=== PATIENT | female | born 1935 | race Two or more races ===

== ENCOUNTER 2017-06-11 08:20 | Inpatient (IN) | payer MEDICARE, MEDICAID ==
[2017-06-05 15:52] LABS: BASOPHILS % (AUTO) 0.5 % (0-1); EOSINOPHILS # (AUTO) 0.3 X10'3 (0-0.9); EOSINOPHILS % (AUTO) 4.4 % (0-6); LYMPHOCYTES # (AUTO) 2.8 X10'3 (1.1-4.8); LYMPHOCYTES % (AUTO) 40.5 % (21-51); MEAN CORPUSCULAR HEMOGLOBIN 29.9 PG (27.0-31.0); MEAN CORPUSCULAR HGB CONC 33.4 % (33.0-36.5); MEAN CORPUSCULAR VOLUME 89.5 FL (78-98); MEAN PLATELET VOLUME 8.4 FL (7.4-10.4); MONOCYTES # (AUTO) 0.6 X10'3 (0-0.9); MONOCYTES % (AUTO) 8.8 % (2-12); NEUTROPHILS # (AUTO) 3.1 X10'3 (1.8-7.7); NEUTROPHILS % (AUTO) 45.8 % (42-75); PRE OP HEMATOCRIT 36.9 % (35.0-45.0); PRE OP HEMOGLOBIN 12.3 g/dL (12.0-16.0); PRE OP PLATELET COUNT 199 X10'3 (140-440); RED BLOOD COUNT 4.12 X10'6 (4.20-5.60); RED CELL DISTRIBUTION WIDTH 12.5 % (11.5-14.5)
[2017-06-05 16:02] LABS: PRE OP PROTIME 10.8 SECONDS (9.0-12.0)
[2017-06-05 16:07] LABS: ALBUMIN 3.6 G/DL (3.4-5.0); ALKALINE PHOSPHATASE 87 IU/L (46-116); BLOOD UREA NITROGEN 14 MG/DL (7-18); BUN/CREATININE RATIO 16.5 (6.6-38.0); CALCIUM 8.9 MG/DL (8.5-10.1); CHLORIDE 102 MMOL/L (99-107); CREATININE 0.85 MG/DL (0.40-0.90); PRE OP ALT 38 U/L (30-65); PRE OP ANION GAP 5 (8-16); PRE OP AST 29 U/L (10-37); PRE OP BILIRUB, TOTAL 0.2 MG/DL (0.0-1.0); PRE OP GLUCOSE 146 MG/DL (70-104); PRE OP SODIUM 138 MMOL/L (135-145); TOTAL CARBON DIOXIDE 31.5 MMOL/L (24-32); TOTAL PROTEIN 7.2 G/DL (6.4-8.2); eGFR 64 ML/MIN
[2017-06-11] VITALS (18 sets, daily range): BP systolic 109–167; BP diastolic 47–90
[~2017-06-11] VITALS: Ht 152.4 cm; Wt 81.8 kg
[~2017-06-11 08:20] MED LIST: BUPR150T6 PO; CARB200T PO; ESCI5TAB PO; ESZO3TAB32 PO; LOSA1TAB39 PO; PRAV40TA3 PO; ceFAZolin 2gm in dextrose, iso 100 ML IV ONE; famotidine 20mg tablet PO ONE; losartan 50mg tablet PO ONE; ringers solution, lacted 1,000 ML IV SCH; vancomycin inj 1,500 MG in normal saline 300ml IV soln IV ONE
[2017-06-11] MEDS ORDERED: LIDOcaine 1% (10mg/ml) 2ml vial ONE (09:06)
[2017-06-11] MEDS ORDERED: ketorolac trometh. 30mg/ml inj. ONE (11:33)
[2017-06-11] MEDS ORDERED: ROPIVAcaine 0.5% (5mg/ml) 30ml vial ONE (11:34)
[2017-06-11] MEDS ORDERED: vancomycin 1,000mg inj ONE (11:34)
[2017-06-11] MEDS ORDERED: BUPIVAcaine/dex-water/PF 7.5 mg/ml 2ml ampul ONE (12:22)
[2017-06-11] MEDS ORDERED: cloNIDine hcl/PF 100mcg/ml inj ONE (12:22)
[2017-06-11] MEDS ORDERED: MIDAZolam 1mg/ml 10ml vial ONE (12:32)
[2017-06-11] MEDS ORDERED: MORPHINE SULFATE/PF 0.5 MG/ML 10ML AMPUL ONE (12:32)
[2017-06-11] MEDS ORDERED: propofol inj 20 ML IV ONE ×3 (13:00→14:50)
[2017-06-11] MEDS ORDERED: diphenhydrAMINE 50 mg/ml inj ONE (13:04)
[2017-06-11] MEDS ORDERED: TRANEXAMIC ACID IV ONE ×2 (13:05)
[2017-06-11] MEDS ORDERED: SODIUM CHLORIDE IV ONE ×2 (13:05)
[2017-06-11] MEDS ORDERED: ringers solution, lacted 1,000 ML IV SCH (13:49)
[2017-06-11] MEDS ORDERED: naloxone 2mg/2ml inj 1.6 MG in normal saline 500ml IV soln 500 ML IV PRN (13:49)
[2017-06-11] MEDS ORDERED: proCHLORperazine 10 MG/2 ml inj IV PRN (13:50)
[2017-06-11] MEDS ORDERED: fentaNYL/PF 50MCG/1 ML 2ML syringe IV PRN ×2 (13:50)
[2017-06-11] MEDS ORDERED: diphenhydrAMINE 50 mg/ml inj IV PRN (13:50)
[2017-06-11] MEDS ORDERED: ondansetron/PF 4mg/2ml inj IV PRN ×2 (13:50)
[2017-06-11] MEDS ORDERED: meperidine/PF 25mg/ml syringe IV ONE (13:50)
[2017-06-11] MEDS ORDERED: ceFAZolin 1000mg inj ONE (15:15)
[2017-06-11] MEDS ORDERED: dexamethasone sod phosphate 4mg/ml inj. ONE (15:16)
[2017-06-11] MEDS ORDERED: BUPIVAcaine/PF 2.5 mg/ml (0.25%) 30ml vial ONE (15:16)
[2017-06-11] MEDS ORDERED: magnesium hydroxide 30ml (MOM) UD suspension PO PRN (15:35)
[2017-06-11] MEDS ORDERED: HYDROmorphone 1 mg/ml syringe IV PRN ×2 (15:35)
[2017-06-11] MEDS ORDERED: diphenhydrAMINE 25mg capsule PO PRN (15:35)
[2017-06-11] MEDS ORDERED: bisacodyl 10mg suppository rectal RC PRN (15:35)
[2017-06-11] MEDS ORDERED: acetaminophen 325mg tablet PO PRN (15:35)
[2017-06-11] MEDS: potassium cl 20mEq in 1/2 NS 1,000 ML IV SCH ×2 (17:13→23:35)
[2017-06-11] MEDS: cefazolin 1gm/NS 100mL 100 ML IV SCH (17:14)
[2017-06-11] MEDS: diphenhydrAMINE 25mg capsule PO PRN (17:19)
[2017-06-11] MEDS ORDERED: vancomycin/NS 1 GM ADD-VANTAGE 250 ML IV SCH (20:00)
[2017-06-11] MEDS: carBAMazepine 100mg chewable tablet PO SCH (20:35)
[2017-06-11] MEDS: gabapentin 300mg capsule PO SCH (20:35)
[2017-06-11] MEDS: acetaminophen 325mg tablet PO SCH (20:35)
[2017-06-11] MEDS: zolpidem 5mg tablet PO SCH (20:36)
[2017-06-11] MEDS: buPROPion 75mg tablet PO SCH (20:36)
[2017-06-11] MEDS: sennosides 8.6mg tablet PO SCH (20:36)
[2017-06-11] MEDS: ketorolac tromethamine 15mg/ml inj. IV SCH (20:37)
[2017-06-11] MEDS: ondansetron/PF 4mg/2ml inj IV PRN (20:50)
[2017-06-11] MEDS ORDERED: CARBAMAZEPINE PO SCH (21:00)
[2017-06-11] MEDS ORDERED: ESZOPICLONE PO SCH (21:00)
[2017-06-12] MEDS: cefazolin 1gm/NS 100mL 100 ML IV SCH (00:39)
[2017-06-12] MEDS: potassium cl 20mEq in 1/2 NS 1,000 ML IV SCH ×3 (00:39→23:35)
[2017-06-12] MEDS: oxyCODONE IR 5mg (immed. release) tablet PO PRN ×5 (01:03→23:58)
[2017-06-12 02:00] VITALS: BP 117/56
[2017-06-12] MEDS: ketorolac tromethamine 15mg/ml inj. IV SCH ×4 (02:12→20:41)
[2017-06-12] MEDS: acetaminophen 325mg tablet PO SCH ×4 (02:12→20:42)
[2017-06-12] MEDS: diphenhydrAMINE 25mg capsule PO PRN (05:23)
[2017-06-12 06:27] LABS: BASOPHILS % (AUTO) 0.1 % (0-1); EOSINOPHILS # (AUTO) 0.2 X10'3 (0-0.9); EOSINOPHILS % (AUTO) 1.7 % (0-6); HEMATOCRIT 29.7 % (35.0-45.0); HEMOGLOBIN 10.1 g/dl (12.0-16.0); LYMPHOCYTES # (AUTO) 2.3 X10'3 (1.1-4.8); LYMPHOCYTES % (AUTO) 18.7 % (21-51); MEAN CORPUSCULAR HEMOGLOBIN 30.1 PG (27.0-31.0); MEAN CORPUSCULAR HGB CONC 33.8 % (33.0-36.5); MEAN CORPUSCULAR VOLUME 88.9 FL (78-98); MEAN PLATELET VOLUME 8.1 FL (7.4-10.4); MONOCYTES # (AUTO) 1.2 X10'3 (0-0.9); MONOCYTES % (AUTO) 9.7 % (2-12); NEUTROPHILS # (AUTO) 8.5 X10'3 (1.8-7.7); NEUTROPHILS % (AUTO) 69.8 % (42-75); PLATELET COUNT 166 X10'3 (140-440); RED BLOOD COUNT 3.34 X10'6 (4.20-5.60); RED CELL DISTRIBUTION WIDTH 12.8 % (11.5-14.5); WHITE BLOOD COUNT 12.2 X10'3 (4.5-11.0)
[2017-06-12 06:56] LABS: ANION GAP 4 (8-16); CHLORIDE 100 MMOL/L (99-107); POTASSIUM 5.3 MMOL/L (3.5-5.1); SODIUM 133 MMOL/L (135-145); TOTAL CARBON DIOXIDE 28.7 MMOL/L (24-32)
[2017-06-12] MEDS: ondansetron/PF 4mg/2ml inj IV PRN (07:13)
[2017-06-12 07:24] VITALS: BP 119/65
[2017-06-12] MEDS: buPROPion 75mg tablet PO SCH ×2 (08:00→20:42)
[2017-06-12] MEDS: losartan 50mg tablet PO SCH (08:00)
[2017-06-12] MEDS ORDERED: buproprion 150mg XL (24-hour) tablet PO SCH (08:00)
[2017-06-12] MEDS ORDERED: pravastatin 40mg tablet PO SCH (08:00)
[2017-06-12] MEDS: atorvastatin 10mg tablet PO SCH (08:00)
[2017-06-12] MEDS ORDERED: ESCITALOPRAM OXALATE PO SCH (08:00)
[2017-06-12] MEDS ORDERED: non-formulary drug (Losartan/Hydrochlorothiazide (Losartan-Hctz 100-25 Mg Tab) 1 TAB) PO SCH (08:00)
[2017-06-12] MEDS: HYDROchlorothiazide 25mg tablet PO SCH (08:00)
[2017-06-12] MEDS: citalopram 20mg tablet PO SCH (08:00)
[2017-06-12] MEDS: aspirin 325mg tablet PO SCH (11:09)
[2017-06-12] MEDS: gabapentin 300mg capsule PO SCH ×3 (11:09→20:42)
[2017-06-12 11:50] VITALS: BP 156/69
[2017-06-12 16:33] VITALS: BP 110/51
[2017-06-12 18:00] VITALS: BP 128/55
[2017-06-12] MEDS: zolpidem 5mg tablet PO SCH (20:41)
[2017-06-12] MEDS: sennosides 8.6mg tablet PO SCH (20:42)
[2017-06-12] MEDS: carBAMazepine 100mg chewable tablet PO SCH (20:48)
[2017-06-12 22:00] VITALS: BP 105/64
[2017-06-13] MEDS: acetaminophen 325mg tablet PO SCH ×3 (02:17→14:40)
[2017-06-13] MEDS: ketorolac tromethamine 15mg/ml inj. IV SCH (02:17)
[2017-06-13 05:00] VITALS: BP 111/59
[2017-06-13] MEDS: oxyCODONE IR 5mg (immed. release) tablet PO PRN ×4 (05:09→18:56)
[2017-06-13 06:12] LABS: BASOPHILS % (AUTO) 0.3 % (0-1); EOSINOPHILS # (AUTO) 0.3 X10'3 (0-0.9); HEMOGLOBIN 8.1 g/dl (12.0-16.0); LYMPHOCYTES # (AUTO) 1.9 X10'3 (1.1-4.8); LYMPHOCYTES % (AUTO) 28.6 % (21-51); MEAN CORPUSCULAR HEMOGLOBIN 30.2 PG (27.0-31.0); MEAN CORPUSCULAR HGB CONC 33.9 % (33.0-36.5); MEAN CORPUSCULAR VOLUME 88.9 FL (78-98); MEAN PLATELET VOLUME 8.7 FL (7.4-10.4); MONOCYTES # (AUTO) 0.9 X10'3 (0-0.9); MONOCYTES % (AUTO) 14.1 % (2-12); NEUTROPHILS # (AUTO) 3.4 X10'3 (1.8-7.7); PLATELET COUNT 120 X10'3 (140-440); RED CELL DISTRIBUTION WIDTH 12.3 % (11.5-14.5); WHITE BLOOD COUNT 6.6 X10'3 (4.5-11.0)
[2017-06-13] MEDS: potassium cl 20mEq in 1/2 NS 1,000 ML IV SCH (07:35)
[2017-06-13] MEDS: losartan 50mg tablet PO SCH (08:00)
[2017-06-13] MEDS: HYDROchlorothiazide 25mg tablet PO SCH (08:00)
[2017-06-13 08:40] LABS: ALBUMIN 2.7 G/DL (3.4-5.0); ANION GAP 3 (8-16); BLOOD UREA NITROGEN 13 MG/DL (7-18); BUN/CREATININE RATIO 16.3 (6.6-38.0); CALCIUM 7.9 MG/DL (8.5-10.1); CHLORIDE 103 MMOL/L (99-107); GLUCOSE 119 MG/DL (70-104); POTASSIUM 4.2 MMOL/L (3.5-5.1); SODIUM 134 MMOL/L (135-145); TOTAL CARBON DIOXIDE 28.5 MMOL/L (24-32); eGFR 69 ML/MIN
[2017-06-13] MEDS: citalopram 20mg tablet PO SCH (08:44)
[2017-06-13] MEDS: celeCOXIB 100mg capsule PO SCH ×2 (08:44→20:20)
[2017-06-13] MEDS: atorvastatin 10mg tablet PO SCH (08:44)
[2017-06-13] MEDS: gabapentin 300mg capsule PO SCH ×3 (08:45→20:20)
[2017-06-13] MEDS: buPROPion 75mg tablet PO SCH ×2 (08:46→20:20)
[2017-06-13] MEDS: aspirin 325mg tablet PO SCH (08:46)
[2017-06-13 10:30] VITALS: BP 145/66
[2017-06-13 18:00] VITALS: BP 143/56
[2017-06-13] MEDS: Protein Smoothie (high protein) 240ml (8oz) cup PO SCH (18:00)
[2017-06-13] MEDS: zolpidem 5mg tablet PO SCH (20:20)
[2017-06-13] MEDS: sennosides 8.6mg tablet PO SCH (20:21)
[2017-06-13] MEDS: carBAMazepine 100mg chewable tablet PO SCH (20:21)
[2017-06-13 22:00] VITALS: BP 123/58
[2017-06-14 05:00] VITALS: BP 118/54
[2017-06-14 07:25] VITALS: BP 138/72
[2017-06-14 07:28] LABS: BASOPHILS % (AUTO) 0.3 % (0-1); EOSINOPHILS # (AUTO) 0.2 X10'3 (0-0.9); EOSINOPHILS % (AUTO) 2.6 % (0-6); HEMATOCRIT 24.3 % (35.0-45.0); HEMOGLOBIN 8.6 g/dl (12.0-16.0); LYMPHOCYTES # (AUTO) 1.7 X10'3 (1.1-4.8); LYMPHOCYTES % (AUTO) 19.3 % (21-51); MEAN CORPUSCULAR HEMOGLOBIN 31.1 PG (27.0-31.0); MEAN CORPUSCULAR HGB CONC 35.2 % (33.0-36.5); MEAN CORPUSCULAR VOLUME 88.4 FL (78-98); MEAN PLATELET VOLUME 8.8 FL (7.4-10.4); MONOCYTES # (AUTO) 1.3 X10'3 (0-0.9); MONOCYTES % (AUTO) 14.6 % (2-12); NEUTROPHILS # (AUTO) 5.7 X10'3 (1.8-7.7); NEUTROPHILS % (AUTO) 63.2 % (42-75); PLATELET COUNT 133 X10'3 (140-440); RED BLOOD COUNT 2.75 X10'6 (4.20-5.60); RED CELL DISTRIBUTION WIDTH 11.8 % (11.5-14.5); WHITE BLOOD COUNT 8.9 X10'3 (4.5-11.0)
[2017-06-14] MEDS: oxyCODONE IR 5mg (immed. release) tablet PO PRN (07:50)
[2017-06-14] MEDS: Protein Smoothie (high protein) 240ml (8oz) cup PO SCH (08:00)
[2017-06-14] MEDS: gabapentin 300mg capsule PO SCH (09:38)
[2017-06-14] MEDS: buPROPion 75mg tablet PO SCH (09:38)
[2017-06-14] MEDS: citalopram 20mg tablet PO SCH (09:38)
[2017-06-14] MEDS: losartan 50mg tablet PO SCH (09:38)
[2017-06-14] MEDS: atorvastatin 10mg tablet PO SCH (09:38)
[2017-06-14] MEDS: aspirin 325mg tablet PO SCH (09:38)
[2017-06-14] MEDS: celeCOXIB 100mg capsule PO SCH (09:38)
[2017-06-14] MEDS: HYDROchlorothiazide 25mg tablet PO SCH (09:38)
[2017-06-14 10:00] VITALS: BP 146/70
== END 2017-06-14 11:00 | DRG 470 ==
LOC: PAS IN 08:20 → EDSTATUS 12:00 → ORTHO 4S 17:00
PROVIDERS: ADMIT Orthopaedic Surgery; ATTEND Orthopaedic Surgery
PROC: 8E0Y0CZ Robotic Assisted Procedure of Lower Extremity, Open Approach (ICD-10-PCS; 2017-06-11)
PROC: 8E0YXBZ Computer Assisted Procedure of Lower Extremity (ICD-10-PCS; 2017-06-11)
PROC: 3E0T3BZ Introduction of Anesthetic Agent into Peripheral Nerves and Plexi, Percutaneous Approach (ICD-10-PCS; 2017-06-11)
PROC: 0SRD0J9 Replacement of Left Knee Joint with Synthetic Substitute, Cemented, Open Approach (ICD-10-PCS; principal; 2017-06-11 12:16)
DX: M17.12 Unilateral primary osteoarthritis, left knee (principal); D62 Acute posthemorrhagic anemia; F32.9 Major depressive disorder, single episode, unspecified; E78.5 Hyperlipidemia, unspecified; M21.162 Varus deformity, not elsewhere classified, left knee; I10 Essential (primary) hypertension; Z98.891 History of uterine scar from previous surgery; Z79.899 Other long term (current) drug therapy; Z79.01 Long term (current) use of anticoagulants; Z85.51 Personal history of malignant neoplasm of bladder
CPT/HCPCS: 36415; 80048; 80051; 80053; 85025; 85610; 85730; 87070; 93005; 97110; 97116; 97161; 97530; 97535; A6455; A7000; C1713; C1758; C1776; J0690; J0735; J1100; J1200; J1885; J2250; J2274; J2405; J2704; J2795; J3370; J3490; J7030; J7120; Q0163